=== PATIENT | female | born 1955 | race Caucasian/White ===

== ENCOUNTER 2022-03-11 15:28 | Outpatient (CLI) | payer MEDICARE | END 2022-03-11 15:29 | disposition home or self-care (01) | LOC: CSHMAMMO 15:28 | PROVIDERS: ATTEND Family Medicine | DX: Z12.31 Encounter for screening mammogram for malignant neoplasm of breast (principal); Z13.820 Encounter for screening for osteoporosis; Z78.0 Asymptomatic menopausal state; M85.88 Other specified disorders of bone density and structure, other site; Z91.89 Other specified personal risk factors, not elsewhere classified; Z98.890 Other specified postprocedural states | CPT/HCPCS: 77063; 77067; 77080 ==

== ENCOUNTER 2023-06-06 10:35 | Outpatient (CLI) | payer MEDICARE | END 2023-06-06 10:36 | disposition home or self-care (01) | LOC: CSHMAMMO 10:35 | PROVIDERS: ATTEND Family Medicine | DX: Z12.31 Encounter for screening mammogram for malignant neoplasm of breast (principal); Z91.89 Other specified personal risk factors, not elsewhere classified; Z98.890 Other specified postprocedural states | CPT/HCPCS: 77063; 77067 ==

== ENCOUNTER 2023-07-28 19:19 | Inpatient (IN) | payer MEDICARE ==
[2023-07-28] MEDS ORDERED: Acetaminophen 325 MG TAB PO PRN (20:44)
[2023-07-28] MEDS ORDERED: Calcium Carbonate 500 MG ChewTAB PO PRN (20:44)
[2023-07-28] MEDS ORDERED: Senokot S 8.6-50 MG TAB PO PRN (20:44)
[2023-07-28] MEDS ORDERED: Zolpidem Tartrate 5 MG TAB PO PRN (20:44)
[2023-07-28] MEDS ORDERED: Ondansetron PF 4 MG/2 ML Vial IVP PRN (20:44)
[2023-07-28] MEDS ORDERED: Guaifenesin DM 100-10/5 ML UDCUP PO PRN (20:44)
[2023-07-28] MEDS ORDERED: ALPRAZolam 0.25 MG TAB PO PRN (20:49)
[2023-07-28] MEDS ORDERED: Lactated Ringer's 1,000 ML IV SCH (21:00)
[2023-07-28] MEDS ORDERED: Ezetimibe 10 MG TAB PO SCH (21:00)
[2023-07-28] MEDS ORDERED: Famotidine/PF 20 mg/2ml Vial SLOW IVP SCH (21:00)
[2023-07-28] MEDS ORDERED: Nebivolol HCl 5 MG TAB PO SCH (21:00)
[2023-07-28] MEDS ORDERED: LevoFLOXacin 750 mg/D5W 750 MG in Premix 1 BAG IVPB SCH (21:00)
[2023-07-28] MEDS ORDERED: Benzonatate 100 MG CAP PO SCH (21:00)
[2023-07-28] MEDS ORDERED: cefTRIAXone\\ROCEPHIN 2 GM in Sodium Chloride 0.9% 100 ML IVPB SCH (21:00)
[2023-07-28] MEDS ORDERED: Simethicone Chewable 80 MG TAB PO PRN ×2 (21:47→22:03)
[2023-07-28] MEDS ORDERED: Benzocaine/Menthol 1 LOZ LOZ PO PRN (22:03)
[2023-07-28 22:22] VITALS: BMI 31.4
[2023-07-28 23:57] LABS: Legionella Urinary Ag Negative (Negative); Strep pneumo Urine Ag NEGATIVE (NEGATIVE)
[2023-07-29 03:56] LABS: #Monocytes 0.8 10x3/uL (0.0-1.1); #Neutrophils 10.8 10x3/uL (1.5-8.4); %Basophils 0.2 % (0.0-2.0); %Eosinophils 0.1 % (0.0-6.0); %Neutrophils 82.2 % (40.0-75.0); Hematocrit 35.7 % (34.9-44.5); Hemoglobin 11.5 g/dL (12.0-15.5); Mean Corpuscular HGB CONC 32.2 g/dL (32.0-36.0); Mean Corpuscular Hemoglobin 29.3 pg (27.0-33.0); Mean Corpuscular Volume 91.1 fl (81.6-98.3); Mean Platelet Volume 11.1 fl (7.4-10.4); Platelet Count 194 10x3/uL (150-450); RBC Distribution Width 14.5 % (11.5-14.5); Red Blood Cell (RBC) Count 3.92 10x6/uL (3.90-5.03); White Blood Cell (WBC) Count 13.1 10x3/uL (3.5-10.5)
[2023-07-29 04:25] LABS: Anion Gap 9 mmol/L (10-20); BUN (Urea Nitrogen) 9 mg/dL (9.8-20.1); Calc. Creatinine Clearance 93 mL/min (70-130); Calcium 8.3 mg/dL (7.8-10.44); Carbon Dioxide 20 mmol/L (23-31); Chloride 108 mmol/L (98-107); Estimated GFR 93; Glucose 118 mg/dL (80-115); Potassium 3.1 mmol/L (3.5-5.1); Sodium 134 mmol/L (136-145)
[2023-07-29] MEDS ORDERED: Potassium Chloride 20 MEQ TAB PO SCH (06:45)
[2023-07-29] MEDS ORDERED: Multivitamin W/ Minerals 1 TAB PO SCH (09:00)
[2023-07-29] MEDS ORDERED: Fluticasone Propionate Nasal Spray 16 gm Bottle NASAL SCH (09:00)
[2023-07-29] MEDS ORDERED: Aspirin Chewable 81 MG TAB PO SCH (09:00)
[2023-07-29] MEDS ORDERED: Famotidine 20 MG TAB PO SCH (09:00)
[2023-07-29] MEDS ORDERED: Potassium Bicarbonate/Cit Ac 20 MEQ TAB PO SCH (09:15)
[2023-07-29] MEDS ORDERED: ALPRAZolam 0.25 MG TAB PO PRN (09:47)
[2023-07-29 13:18] VITALS: BP 129/65; TEMP 98
[2023-07-29] MEDS ORDERED: Vancomycin 1.5 GRAM/300 ML BAG 1.5 GM in Premix 1 BAG IVPB SCH (16:00)
== END 2023-07-29 17:30 | disposition home or self-care (01) | DRG 871 ==
LOC: CSHTELE 19:19
PROVIDERS: ADMIT Internal Medicine; ATTEND Internal Medicine
DX: A41.9 Sepsis, unspecified organism (principal); J18.9 Pneumonia, unspecified organism; I10 Essential (primary) hypertension; E78.5 Hyperlipidemia, unspecified; I25.10 Atherosclerotic heart disease of native coronary artery without angina pectoris; K21.9 Gastro-esophageal reflux disease without esophagitis; F41.9 Anxiety disorder, unspecified; E86.0 Dehydration; E87.6 Hypokalemia; Z88.5 Allergy status to narcotic agent; Z88.8 Allergy status to other drugs, medicaments and biological substances; Z88.1 Allergy status to other antibiotic agents; Z88.0 Allergy status to penicillin; Z88.2 Allergy status to sulfonamides; Z79.82 Long term (current) use of aspirin; Z79.899 Other long term (current) drug therapy; Z95.5 Presence of coronary angioplasty implant and graft; Z90.710 Acquired absence of both cervix and uterus; Z90.49 Acquired absence of other specified parts of digestive tract; Z87.891 Personal history of nicotine dependence
CPT/HCPCS: 36415; 80048; 84145; 85025; 87449; 87899; 94640; 94760; J1650; J1956; J7120; J7611; S0028

== ENCOUNTER 2025-05-20 10:46 | Outpatient (CLI) | payer MEDICARE ==
[2025-05-20 11:48] LABS: #Basophils 0.04 10x3/uL (0.0-0.2); #Eosinophils 0.26 10x3/uL (0.0-0.5); #Monocytes 0.73 10x3/uL (0.0-1.1); #Neutrophils 4.44 10x3/uL (1.5-8.4); %Basophils 0.5 % (0.0-2.0); %Eosinophils 3.1 % (0.0-6.0); %Lymphocytes 34.1 % (18.0-47.0); %Monocytes 8.8 % (0.0-10.0); %Neutrophils 53.3 % (40.0-75.0); Hematocrit 44.2 % (34.9-44.5); Hemoglobin 13.9 g/dL (12.0-15.5); Mean Corpuscular Hemoglobin 29.5 pg (27.0-33.0); Mean Corpuscular Volume 93.8 fL (81.6-98.3); Platelet Count 289 10x3/uL (150-450); Red Blood Cell (RBC) Count 4.71 10x6/uL (3.90-5.03); White Blood Cell (WBC) Count 8.33 10x3/uL (3.5-10.5)
[2025-05-20 12:03] LABS: Anion Gap 10 mmol/L (10-20); BUN (Urea Nitrogen) 14 mg/dL (9.8-20.1); Calc. Creatinine Clearance 0 mL/min (70-130); Calcium 9.6 mg/dL (7.8-10.44); Carbon Dioxide 30 mmol/L (23-31); Chloride 106 mmol/L (98-107); Glucose 97 mg/dL (80-115); Potassium 4.2 mmol/L (3.5-5.1); Sodium 142 mmol/L (136-145)
== END 2025-05-20 10:47 | disposition home or self-care (01) ==
LOC: CSHLAB 10:46
PROVIDERS: ATTEND Specialist
DX: Z01.818 Encounter for other preprocedural examination (principal); K44.9 Diaphragmatic hernia without obstruction or gangrene; K21.9 Gastro-esophageal reflux disease without esophagitis
CPT/HCPCS: 71046; 80048; 85025